=== PATIENT | male | born 1980 | race Caucasian/White ===

== ENCOUNTER 2025-03-02 09:51 | Outpatient (CLI) | payer OTHER ==
--- NOTE | 2025-03-02 11:26 | RADIOLOGY REPORT ---
EXAM: CT CT SINUS HISTORY: CHRONIC PANSINUSITIS COMPARISON: None TECHNIQUE: Noncontrast axial CT images of the paranasal sinuses were performed. Coronal and sagittal reformatted images were obtained. Radiation dose: CTDIvol 54.36 mGy, DLP 845.83 mGy*cm. This CT exam was performed using one or more of the following dose reduction techniques: Automated ex posure control, adjustment of the mA and/or kV according to patient size, or use of iterative reconst ruction technique. FINDINGS: There is moderate mucosal thickening of the left maxillary sinus. The other paranasal sinus es are clear. No facial bone fractures are identified. The nasal septum is mildly deviated to the lef t anteriorly. The bilateral maxillary infundibula are narrowed. There are small bilateral yulia bull minnie. There are bilateral Negin cells. The mastoid air cells and middle ear spaces are clear. There is mild palatine and lingual tonsillar hypertrophy without significant airway narrowing. IMPRESSION: 1. Moderate left maxillary sinus disease. 2. The other paranasal sinuses are clear. 3. Mild leftward deviation of the anterior nasal septum; small bilateral yulia bullosa; bilateral Tamez ller cells.
== END 2025-03-02 23:59 | disposition home or self-care (01) ==
LOC: 64 CT 09:51
PROVIDERS: ATTEND Family Medicine
DX: J32.0 Chronic maxillary sinusitis (principal); J32.4 Chronic pansinusitis; J34.2 Deviated nasal septum
CPT/HCPCS: 70486